=== PATIENT | female | born 1990 | race Caucasian/White ===

== ENCOUNTER 2021-05-11 13:30 | Inpatient (IN) | payer OTHER, SELFPAY ==
--- NOTE | 2021-05-11 15:16 | P.HPOB_ITS ---
OB HPI Date/Time Date of admission: 05/11/21 Date Patient Seen: 05/11/21 Time Patient Seen: 15:00 History of Present Condition Chief complaint: PPROM, labor evaluation Narrative: Andria Henning is a 31 year old female @ [id number] by LMP and 8wk US who presented for evaluation of PPROM. Noticed a gush of clear fluid around 1000 with contractions starting around 1100. Has been breathing through strong contractions since 1pm. Was planing an out of hispital brth with county library director Rhianna Gibson and was referred to the hospital from [facility] for . Uncomplicated care. Partner is present and supportive. Smog Technician is en route. 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) and RPR/VDLR: negative -: Chlamydia screen: not detected and Gonorrhea screen: not detected -: Rubella: immune HCT: 33.9 PAP: Normal Cell-free DNA: Negative, female 1 hr GTT: 133 Evaluation Evaluation Baseline heart rate: 145 Variability: Moderate (11-25) monitor accelerations: Present Monitor Decelerations: Absent Contraction Frequency (minutes): 2 Category of Tracing: Reactive Status: Category l Cervical dilation (cm): 3 Cervical effacement (%): 80 station: -2 [facility] Medical History (Updated 05/11/21 @ 15:34 by Sara Resendez CNM) Encounter for immunization Surgical History (Updated 05/11/21 @ 15:34 by Sara Resendez CNM) History of tonsillectomy Meds Home Medications and Allergies Home Medications Medication Instructions Recorded Confirmed Type No Known Home Medications 05/10/21 05/10/21 History Allergies Allergy/AdvReac Type Severity Reaction Status Date / Time shellfish derived Allergy Mild Unverified 05/10/21 14:38 Review of Systems Review of Systems ROS: Yes All systems reviewed with the patient and are negative except as otherwise documented Exam Vital Signs (past 8 hours): BP 116/63, HR 75bpm, T 35.9C Temporal Chest Chest: normal inspection of the chest Resp Effort & Inspection: normal respiratory effort Auscultation: clear to auscultation bilaterally Cardio Rate: regular rate Rhythm: regular rhythm Heart Sounds: S1 normal and S2 normal Presentation: vertex Assessment and Plan Assessment and Plan Assessment and Plan narrative: Late nullipara PPROM x 5 hours without sx of infection HSVII, 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 May switch to IA. Labor support, PRN. Reassess in 4 hurs or sooner, PRN.
[2021-05-11 15:32] LABS: Add Manual Diff / Slide Review NO; Basophils Absolute Auto 0 /uL (0-100); Basophils Percent Auto 0.4 % (0-2); Eosinophils Absolute Auto 300 /uL (0-450); Eosinophils Percent Auto 2.4 % (2-4); Hematocrit 37.9 % (36-46); Hemoglobin 12.8 g/dL (12.0-16.0); Lymphocytes Absolute Auto 1800 /uL (1100-4500); Lymphocytes Percent Auto 15.7 % (25-40); Mean Corpuscular HGB Conc 33.9 % (30-36); Mean Corpuscular Hemoglobin 29.6 PG (26-34); Mean Corpuscular Volume 87.4 fL (80-100); Monocytes Absolute Auto 700 /uL (0-900); Neutrophils Absolute Auto 8700 /uL (1500-7000); Neutrophils Percent Auto 75.5 % (50-75); Platelet Count 205 X10^3/uL (150-400); Red Blood Cell Count 4.33 X10^6/uL (4.0-5.2); Red Cell Distribution Width 13.5 % (11.6-14.8); White Blood Cell Count 11.5 X10^3/uL (4.5-11.0)
[2021-05-11 16:25] LABS: COVID19 - ADMIT (NP swab/PCR) Negative (Negative)
--- NOTE | 2021-05-11 20:08 | PM.OBPRVD ---
Events: Labor < 37 wks and Premature Rupture Membrane Labor & Delivery Delivery date: 05/11/21 Intrapartal Events: None Cervical ripening method: none Induction method: none Delivery monitor: external FHT Route of delivery: L&D Laceration Description: Perineal - 1st Degree Delivery repair: other Estimated blood loss (mL): 150 Anesthesia Type: None Narrative: Andria labored well without medication. Andria was checked after intermittently bearing down without significant progress x 30 minutes and was found to be C/C/+1. Coaching, positin changes, encouragement and strong maternal efforts led to NSVB of a vigorous baby girl in direct OA position w/ a single loose nuchal cord and easy delivery of the shoulders. was sommersaulted throught the cords and placed on maternal abdomen for drying and skin to skin. Andria declined AMTSL. After cessation of pulsation, the cord was double clamped by CNM and cut by FOB. Hospital cord blood hold sample was collected. Gentle cord traction and single maternal push led to spontaneous, Schultze delivery of an apparently intact placenta, membranes and 3VC. Fundus immediately firm and bleeding minimal. Inspection revealed a short 1st degree perineal laceration with good approximation and hemostasis and no indication for repair. QBL 150mL. Both mother and baby stable and skin to skin as I left the room. Baby 1: gender: Female Presentation: vertex Position: Right Occiput Anterior Placenta delivery description: Spontaneous Cord Vessel Description: 3 Vessels score (1 min): 8 score (5 min): 9 weight: 3.713 kg Plan for aftercare: Routine care
[2021-05-11] MEDS: KETOROLAC 30 MG/ML VIAL IV (23:23)
[2021-05-11] MEDS: LANOLIN OINT 7 GM 1 APPLIC TOP (23:24)
[2021-05-11 23:29] VITALS: BP 127/62
[2021-05-12] MEDS: IBUPROFEN 600 MG TABLET PO ×2 (08:20→14:20)
--- NOTE | 2021-05-12 09:57 | PM.OBDS.1 ---
Discharge Providers Provider Date of admission: 05/11/21 13:30 Discharge Date: 05/12/21 Primary care physician: Rhianna Gibson CPM Consults: 05/12/21 20:20 Consult to Cloud Engineer Routine Comment: Discharge provider: Sara Resendez CNM Summary Hospital Course Diagnoses: o70.0 Hospital Course: Andria is voiding, ambulating and independently. Tolerating general diet. Pain is minimal and well controlled with PO medication. Lochia is light, with 2 small clots overnight. Eager for discharge to home as soon as her daughter, Flora, is safe for discharge. Partner remains present and supportive. Peripartum Data Delivery Method: Natural Vaginal Laceration Description: Perineal - 1st Degree Episiotomy description: None Procedures: NSVB complications: none [place] 1: Gender: Female Disposition of : home Discharge Diagnosis (1) First degree perineal laceration during delivery: Start Date: 05/11/21 Start Time: 19:41 Status: Acute Status at Discharge Cognitive/behavioral status at discharge: oriented and at baseline, oriented Functional status at discharge: independent ambulation Overall status at discharge: patient is progressing back to baseline Time Spent with Patient Time attestation: Total time spent providing and/or coordinating discharge services: Time spent: Less than 30 minutes Specific discharge activities: education Objective Labs Result Diagrams: 05/11/21 15:00 Labs: Laboratory Results - last 24 hr 05/11/21 05/11/21 05/11/21 15:00 15:00 15:00 WBC 11.5 H RBC 4.33 Hgb 12.8 Hct 37.9 MCV 87.4 MCH 29.6 MCHC 33.9 RDW 13.5 Plt Count 205 Neut % (Auto) 75.5 H Lymph % (Auto) 15.7 L [place] % (Auto) 6.0 Eos % (Auto) 2.4 Baso % (Auto) 0.4 Neut # (Auto) 8700 H Lymph # (Auto) 1800 [place] # (Auto) 700 Eos # (Auto) 300 Baso # (Auto) 0 SARS-CoV-2 (PCR) Negative Blood Type A Positive Antibody Screen Negative Exam Vital Signs (past 8 hours): BP 114/69, HR 77bpm, T 35.9C Temporal Other: Fundus firm @ U. lochia light, perineum well approximated Discharge Plan Discharge Plan Patient Disposition: Home Discharge orders & Medications Prescriptions: New acetaminophen 325 mg Tablet 650 mg PO Q6HR PRN (Reason: Pain, Mild (1-3)) 14 Days Qty: 60 RF: 0 ibuprofen 600 mg Tablet 600 mg PO Q6HR PRN (Reason: Pain, Mild (1-3)) 14 Days Qty: 60 RF: 0 No Action No Known Home Medications RF: 0 Medication counseling provided by Pharmacist: No Follow up/Referrals: Sara Resendez CNM [[facility] Adjuster] - (Please contact me at if you would like to follow-up at 2 weeks and/or 6 week . Otherwise, follow-up with your primary transition mgr, as previously planned.) Diet/Activity/Treatments Diet: Regular Activity: pelvic rest x 6 weeks Skin/Wound/Dressing Care Report to your healthcare provider any signs of infection, such as:: chills, fever, increased pain, unusual drainage and unusual redness Visit Report/Discharge Packet Instructions: DI for Depression Stand Alone Forms: Discharge: Care Discharge Data Attending Provider: Corbin Petty
== END 2021-05-12 19:00 | disposition home or self-care (01) | DRG 807 ==
PROVIDERS: Nurse Practitioner Obstetrics & Gynecology; Admitting Provider Obstetrics & Gynecology; Referring Provider Obstetrics & Gynecology; Visit Provider Obstetrics & Gynecology
DX: O42.013 Preterm premature rupture of membranes, onset of labor within 24 hours of rupture, third trimester (principal); Z37.0 Single live birth; O70.0 First degree perineal laceration during delivery; Z3A.37 37 weeks gestation of pregnancy; Z20.822 Contact with and (suspected) exposure to COVID-19
CPT/HCPCS: 59409; 36415; 59050; 85025; 86850; 86900; 86901; 87635; C9803; G0378; G0379; J1885

== ENCOUNTER → 2021-07-02 10:07 | Outpatient (CLI) | payer OTHER, SELFPAY ==
[2021-07-02 20:33] LABS: COVID19 - ORCAS (NP or Nasal) Negative (Negative)
== END ==
PROVIDERS: PCP Physician Assistant; Visit Provider Physician Assistant
DX: Z20.822 Contact with and (suspected) exposure to COVID-19 (principal)
CPT/HCPCS: U0003

== ENCOUNTER → 2022-09-05 09:58 | Outpatient (CLI) | payer OTHER, SELFPAY ==
[2022-09-05 19:33] LABS: Add Manual Diff / Slide Review NO; Basophils Absolute Auto 100 /uL (0-100); Basophils Percent Auto 1.3 % (0-2); Eosinophils Absolute Auto 200 /uL (0-450); Eosinophils Percent Auto 2.9 % (2-4); Hematocrit 42.4 % (36-46); Hemoglobin 14.6 g/dL (12.0-16.0); Lymphocytes Absolute Auto 1500 /uL (1100-4500); Lymphocytes Percent Auto 27.3 % (25-40); Mean Corpuscular HGB Conc 34.4 % (30-36); Mean Corpuscular Hemoglobin 29.9 PG (26-34); Monocytes Absolute Auto 400 /uL (0-900); Monocytes Percent Auto 7.7 % (3-14); Neutrophils Absolute Auto 3400 /uL (1500-7000); Neutrophils Percent Auto 60.8 % (50-75); Platelet Count 225 X10^3/uL (150-400); Red Blood Cell Count 4.88 X10^6/uL (4.0-5.2); White Blood Cell Count 5.7 X10^3/uL (4.5-11.0)
[2022-09-05 19:50] LABS: Alanine Aminotransferase 238 IU/L (<35); Albumin 4.4 g/dL (3.5-5.0); Albumin Globulin Ratio 1.3 (1.0-2.8); Alkaline Phosphatase 85 U/L (38-126); Amylase 53 U/L (30-110); Aspartate Aminotransferase 272 IU/L (14-36); BUN Creatinine Ratio 13.6 (6-22); Bilirubin Total 0.5 mg/dL (0.2-1.3); Blood Urea Nitrogen 9 mg/dL (7-17); Calcium 9.2 mg/dL (8.4-10.2); Carbon Dioxide 28 mmol/L (22-32); Chloride 102 mmol/L (98-107); Estimated Glomerular Filt Rate > 60 mL/min (>60); Globulin 3.5 g/dL (1.7-4.1); Glucose 93 mg/dL (70-100); HEMOLYSIS < 15 (0-50); Lipase 122 U/L (23-300); Potassium 4.4 mmol/L (3.4-5.1); Sodium 141 mmol/L (137-145); Total Protein 7.9 g/dL (6.3-8.2)
== END ==
PROVIDERS: PCP Physician Assistant; Visit Provider Physician Assistant Medical
DX: R10.84 Generalized abdominal pain (principal); R10.9 Unspecified abdominal pain
CPT/HCPCS: 80053; 82150; 83690; 85025

== ENCOUNTER → 2022-09-11 09:41 | Outpatient (CLI) | payer OTHER, SELFPAY ==
[2022-09-11 19:24] LABS: Add Manual Diff / Slide Review NO; Basophils Absolute Auto 100 /uL (0-100); Basophils Percent Auto 0.9 % (0-2); Eosinophils Absolute Auto 200 /uL (0-450); Eosinophils Percent Auto 2.5 % (2-4); Hematocrit 41.9 % (36-46); Hemoglobin 14.2 g/dL (12.0-16.0); Lymphocytes Absolute Auto 2100 /uL (1100-4500); Lymphocytes Percent Auto 34.3 % (25-40); Mean Corpuscular Hemoglobin 29.7 PG (26-34); Mean Corpuscular Volume 87.5 fL (80-100); Monocytes Absolute Auto 400 /uL (0-900); Monocytes Percent Auto 6.1 % (3-14); Neutrophils Absolute Auto 3400 /uL (1500-7000); Neutrophils Percent Auto 56.2 % (50-75); Platelet Count 212 X10^3/uL (150-400); Red Blood Cell Count 4.79 X10^6/uL (4.0-5.2); White Blood Cell Count 6.1 X10^3/uL (4.5-11.0)
[2022-09-11 19:42] LABS: Alanine Aminotransferase 39 IU/L (<35); Albumin 4.4 g/dL (3.5-5.0); Albumin Globulin Ratio 1.2 (1.0-2.8); Alkaline Phosphatase 75 U/L (38-126); Amylase 69 U/L (30-110); Aspartate Aminotransferase 25 IU/L (14-36); BUN Creatinine Ratio 11.8 (6-22); Bilirubin Total 1.1 mg/dL (0.2-1.3); Blood Urea Nitrogen 8 mg/dL (7-17); Carbon Dioxide 27 mmol/L (22-32); Chloride 102 mmol/L (98-107); Cholesterol 181 mg/dL (140-199); Estimated Glomerular Filt Rate > 60 mL/min (>60); Gamma Glutamyl Transpeptidase 40 U/L (12-43); Globulin 3.6 g/dL (1.7-4.1); Glucose 92 mg/dL (70-100); HDL Cholesterol 38 mg/dL (40-60); HEMOLYSIS < 15 (0-50); LDL Cholesterol Calculated 131 mg/dL (<100); Potassium 3.8 mmol/L (3.4-5.1); Sodium 139 mmol/L (137-145); Triglycerides 61 mg/dL (35-150)
[2022-09-13 00:17] LABS: HBsAg Screen Negative (Negative); Hepatitis A Antibody IgM Negative (Negative); Hepatitis B Core Antibody IgM Negative (Negative); Hepatitis C Antibody <0.1 s/co ratio (0.0-0.9)
== END ==
PROVIDERS: PCP Physician Assistant; Visit Provider Physician Assistant Medical
DX: R10.84 Generalized abdominal pain (principal); R74.8 Abnormal levels of other serum enzymes
CPT/HCPCS: 80053; 80061; 80074; 82150; 82977; 85025

== ENCOUNTER → 2022-09-16 09:18 | Outpatient (CLI) | payer OTHER, SELFPAY ==
[2022-09-18 15:36] LABS: Fecal Immunochemical Test Negative (Negative)
== END ==
PROVIDERS: PCP Physician Assistant; Visit Provider Physician Assistant Medical
DX: R10.9 Unspecified abdominal pain (principal)
CPT/HCPCS: 82274